=== PATIENT | female | born 1975 | race Hispanic/Latino ===

== ENCOUNTER → 2023-12-01 13:08 | Outpatient (REF) | payer OTHER, SELFPAY | LOC: WDC 13:08 | PROVIDERS: ATTENDING PHYSICIAN Physician Assistant Medical | DX: Z12.31 Encounter for screening mammogram for malignant neoplasm of breast (principal) | CPT/HCPCS: 77063; 77067 ==

== ENCOUNTER 2023-12-22 20:09 | Emergency (ER) | payer OTHER, SELFPAY ==
[2023-12-22 20:10] VITALS: BP 110/74
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
[2023-12-22] MEDS: MOTRIN 600 MG PO (22:12)
[2023-12-22] MEDS: ADACEL 0.5 ML IM (22:13)
== END 2023-12-22 22:23 | disposition home or self-care (01) ==
LOC: EMR 20:09
PROVIDERS: EMERGENCY PHYSICIAN Emergency Medicine; FAMILY PHYSICIAN Physician Assistant Medical
DX: S61.311A Laceration without foreign body of left index finger with damage to nail, initial encounter (principal); W26.0XXA Contact with knife, initial encounter; Z23 Encounter for immunization
CPT/HCPCS: 99282; 12001; 90471; 90715

== ENCOUNTER → 2024-03-04 13:03 | Outpatient (REF) | payer OTHER, SELFPAY | LOC: WDC 13:03 | PROVIDERS: ATTENDING PHYSICIAN Physician Assistant Medical | DX: R92.2 Inconclusive mammogram (principal); Z91.89 Other specified personal risk factors, not elsewhere classified | CPT/HCPCS: 76641 ==

== ENCOUNTER → 2024-05-03 14:13 | Outpatient (REF) | payer OTHER, SELFPAY ==
[2024-05-03 15:00] LABS: % Basophils 0.6 % (0-2); % Eosinophils 0.6 % (0-6); % Immature Granulocytes 0.1 % (0-0.5); % Monocytes 5.3 % (1.7-9.3); % Neutrophils 64.4 % (42.2-75.2); Absolute Monocytes 0.4 10^3/uL (0.1-0.6); Absolute Neutrophils 4.5 10^3/uL (1.4-6.5); Hematocrit 38.4 % (37.0-47.0); Hemoglobin 13.6 g/dL (12.0-16.0); Mean Corp Hgb Conc. 35.4 g/dL (33.0-37.0); Mean Corpuscular Hgb 30.4 pg (27.0-31.0); Mean Corpuscular Volume 85.9 fL (81.0-99.0); Nucleated Red Blood Cells % 0 %; Platelet Count 365 10^3/uL (130-400); Red Blood Cell Count 4.47 10^6/uL (4.20-5.40); Red Cell Dist. Width 12.7 % (11.5-14.5)
[2024-05-03 15:23] LABS: ALT (SGPT) 18 U/L (0-35); AST (SGOT) 24 U/L (14-36); Albumin 4.4 g/dl (3.5-5.0); Alkaline Phosphatase 38 U/L (38-126); Blood Urea Nitrogen 9 mg/dl (7-17); Carbon Dioxide 24 mmol/L (22-30); Chloride 106 mmol/L (98-107); Glucose 99 mg/dl (70-99); Potassium 4.1 mmol/L (3.5-5.1); Sodium 141 mmol/L (135-145); eGFR > 60.00
== END ==
LOC: RCS 14:13
PROVIDERS: ATTENDING PHYSICIAN Surgery Plastic and Reconstructive Surgery; FAMILY PHYSICIAN Physician Assistant Medical
DX: Z01.818 Encounter for other preprocedural examination (principal)
CPT/HCPCS: 36415; 80053; 85025; 93005

== ENCOUNTER → 2024-05-28 07:30 | Outpatient (REF) | payer OTHER, SELFPAY | LOC: CLAB 07:30 | PROVIDERS: ATTENDING PHYSICIAN Surgery Plastic and Reconstructive Surgery | DX: N62 Hypertrophy of breast (principal); Z98.82 Breast implant status; Z15.01 Genetic susceptibility to malignant neoplasm of breast | CPT/HCPCS: 88304; 88305 ==

== ENCOUNTER → 2024-07-19 09:31 | Outpatient (REF) | payer OTHER, SELFPAY | LOC: RAD 09:31 | PROVIDERS: ATTENDING PHYSICIAN Surgery Plastic and Reconstructive Surgery; FAMILY PHYSICIAN Physician Assistant Medical | DX: Z15.01 Genetic susceptibility to malignant neoplasm of breast (principal) | CPT/HCPCS: 74174; Q9967 ==

== ENCOUNTER → 2024-11-25 12:29 | Outpatient (REF) | payer OTHER, SELFPAY | LOC: RCS 12:29 | PROVIDERS: ATTENDING PHYSICIAN Surgery Plastic and Reconstructive Surgery; FAMILY PHYSICIAN Physician Assistant Medical | DX: C50.412 Malignant neoplasm of upper-outer quadrant of left female breast (principal) | CPT/HCPCS: 93005 ==

== ENCOUNTER 2024-12-11 06:07 | Inpatient (IN) | payer OTHER, SELFPAY ==
[2024-12-11] VITALS (38 sets, daily range): BP systolic 71–115; BP diastolic 50–80; BMI 23.6
[2024-12-11] MEDS: LOVENOX 40 MG SC (06:42)
[2024-12-11] MEDS: NORMOSOL-R/PLASMALYTE-A 1000 IV (06:43)
[2024-12-11 06:49] LABS: HCG, Urine Qualitative Screen Negative
--- NOTE | 2024-12-11 07:16 | W.SUR.PREOP ---
Pre-Operative Surgical Note
-
I have examined this patient prior to the performance of the scheduled procedure.
The patient's condition is unchanged from the time of the current History and
Physical and the patient is able to undergo the scheduled procedure.
[2024-12-11] MEDS: TRANSDERM-SCOP 1 PATCH TRANSDERM (07:24)
[2024-12-11 10:30] LABS: Hematocrit 30.5 % (37.0-47.0); Mean Corp Hgb Conc. 32.8 g/dL (33.0-37.0); Mean Corpuscular Volume 82.4 fL (81.0-99.0); Mean Platelet Volume 9.2 fL (7.4-10.4); Platelet Count 288 10^3/uL (130-400); Red Cell Dist. Width 14.2 % (11.5-14.5); White Blood Cell Count 8.1 10^3/uL (4.8-10.8)
[2024-12-11 10:47] LABS: Blood Urea Nitrogen 10 mg/dl (7-17); Calcium 6.5 mg/dl (8.4-10.2); Carbon Dioxide 22 mmol/L (22-30); Chloride 111 mmol/L (98-107); Estimated Creatinine Clearance 90 ml/min; Glucose 92 mg/dl (70-99); Potassium 4.6 mmol/L (3.5-5.1); Sodium 141 mmol/L (135-145); eGFR > 60.00
--- NOTE | 2024-12-11 15:48 | OR.RPT ---
Operative Report
Operative Report
Date of Service: 12/11/24
Surgeon: Lucy Kelly MD
Co-Surgeon: Davi Garcia MD
Assisting Surgeon: Leesa Florez MD
Preoperative diagnosis:
1. 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
2. 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
Postoperative diagnosis: Same
Procedure:
1. Bilateral immediate MAXIMILIAN flap breast reconstruction
2. Right internal mammary lymph node biopsy
3. Bilateral local tissue rearrangements 50cm2
4. Application of HARMAN disposable negative pressure incisional wound VAC.
Anesthesia: General
EBL: 250 cc
Specimens: Per Dr. Florez. right internal mammary lymph node
Drains: 4 15 Salvadorean Edgar drains
Complications: None
Indications: This is a 49-year-old female who has a history of genetic predispostion to breast cancer and elected to undergo risk reducing bilateral nipple sparing mastectomies. She had previously underwent breast augmentation and was unhappy with
her implants, so she had already had implant removal and mastopexies. She was referred to me by her primary plastic surgeon, Dr. Garcia for autologous reconstruction due to her desire to no longer have implants. I discussed the various options
available to her. She was interested in pursuing autologous reconstruction with tissue from her abdomen and she had acceptable donor site. She understood that she would be smaller breasted after her reconstructions and was amenable to this. Risks of
the procedure were discussed including flap failure, return to OR for arterial or venous thrombosis, wound healing issues, donor site morbidity to the abdomen and VTE.� We reviewed the nature of the procedure and the risk benefits and alternatives
at length.� All her questions were answered.� Consent was signed prior to surgery.
Operative findings:
The patient was brought to the operating room and placed supine on the operating room table. General anesthesia was induced with endotracheal tube.� A Jin catheter was placed.� Patient was prepped and draped in the standard fashion using
chlorhexidine prep.� A timeout was performed.
Dr. Garcia and I started the dissection of the flaps in the abdomen while the breast surgeon was performing the bilateral nipple sparing mastectomies. This involved dissection of the abdominal wall and identification of perforating vessels into the
abdominal flaps bilaterally.� On the patient's right side a 4 front office assistant MAXIMILIAN flap was dissected.� This involved very little muscle to minimize the morbidity to the abdominal wall.� The flap was dissected down to the source vessels where the
inferior epigastrics were coming off of the external iliac.
On the contralateral side another 5 front office assistant MAXIMILIAN flap was also dissected.� This similarly involved a tedious intramuscular dissection where the inferior epigastrics were traced down to their source vessel in a muscle sparing approach.
Once the breast surgeon was done performing the mastectomies, attention was turned to the chest wall. The third rib was resected bilaterally. The internal mammary arteries and veins were identified and carefully circumferentially dissected. Internal
mammary lymph nodes were encountered on the right and these were sent off for pathologic evaluation.
The right hemiabdominal flap was harvested from the abdomen and transferred to the left chest wall.� Microvascular anastomosis was then performed to the internal mammary vessels.� This was done using a 2.5 millimeter programming manager for the venous
anastomosis.� The arterial anastomosis was performed using 8-0 nylon suture in the normal standard fashion.
After the microvascular anastomosis was performed there was excellent perfusion of the flap.� This was temporarily inset and attention was turned to the contralateral breast.
The left hemiabdomen was then transferred to the right chest wall.� The identical procedure was then performed from a microvascular perspective.� This side was with a 3.5 mm programming manager for the venous anastomosis and 8-0 nylon suture for the arterial
anastomosis. This flap similarly had excellent perfusion afterwards.
While my co-surgeon Dr. Garcia was working in the chest, I was dissecting the other MAXIMILIAN flap in the abdomen.� While I was performing microsurgery, he was working in the abdomen to reconstruct the abdominal wall. This allowed us to work in seperate
sites simultaneously to maximize the safety and efficiency of the procedure for the patient.
The abdominal wall was reconstructed using a piece of phasix mesh in an underlay fashion.� The fascia was primarily closed bilaterally. The abdominal wall was then closed in a layered fashion.� This was done after performing a tap block using
marcaine divided evenly amongst the hemiabdomens.� Two 15 Salvadorean edgar drains were placed in the abdomen.� These were secured using 2-0 Prolene sutures.� The Jackie's fascia was then reapproximated using 2-0 Vicryl suture.� The skin was then closed
in a layered fashion using insorb dermal dominique and a running Monocryl suture.
Bilateral pec and intercostal blocks were performed with marcaine and a 15 Salvadorean edgar drain was placed in each breast pocket.� These were also secured using 2-0 Prolene sutures.�
The breast flaps were then de-epithelialized and inset.�The breast skin was then modified with a centralized back cut to inset the skin paddle in a vertical fashion. The area of local tissue rearrangement on each side was approximately 5x5cm for a
total of 50cm2. The breast skin was closed in layered fashion using 3-0 and 4-0 Monocryl suture.� All incisions were dressed with Dermabond glue.� Hand-held Doppler signals were found in the reconstructed breasts and these were marked with a 5-0
Prolene suture. A HARMAN incisional wound VAC was applied to the abdominal incision.
The patient tolerated the procedure very well.� All counts were correct at the completion of the case.� The patient was then extubated uneventfully and transferred to the ICU in stable condition.
Dr. Donaldo Garcia was my co-surgeon for this case.� His status as a co-surgeon was critical and allowing us to function as two separate teams.� This allowed us to operate simultaneously on both the breasts and on each side of the abdomen.� This
was essential for the appropriate safety and efficiency of this procedure.
Dr. Florez was our data entry assistant for this case after performing the mastectomies. Her assistance was critical to allow for us to execute the surgery in a safe and timely manner.
--- NOTE | 2024-12-11 15:52 | W.IMMPOSTOP ---
Surgical Immed Post Op Note
-
Primary Surgeon: Gautam
Assisting Surgeon: None
Pre-op Diagnosis: Deleterious genetic variant CDH1, umbilical hernia, acquired bilateral ventral abdominal wall defects
Post-op Diagnosis: Same
Procedure Performed: Bilateral nipple sparing mastectomies, repair of umbilical hernia, repair of bilateral ventral abdominal wall defects
Anesthesia Type: GET
Specimen / Cultures: Bilateral breasts, bilateral breast cicatrices, bilateral inferior breast skin specimens, right internal mammary lymph node
Estimated Blood Loss: 250cc
Complications: None
Operative Findings: Umbilical hernia found upon dissecting
--- NOTE | 2024-12-11 15:56 | OR.RPT ---
Operative Report
Operative Report
Preoperative diagnosis: Deleterious variant CDH 1, bilateral acquired ventral abdominal wall defect, umbilical hernia
Postoperative diagnosis: same
Procedure date: 12/11/2024
Surgeon: Gautam
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 She opted for risk reduction surgery and will undergo bilateral prophylactic
nipple sparing mastectomies and immediate reconstruction with bilateral MAXIMILIAN flaps.
The primary plastic surgeon Dr. Garcia had removed implants approximately 3 months prior and performed a bilateral mastopexy.
The patient presented to same-day surgical services. She verified site and procedures and DVT and antibiotic prophylaxis were delivered. She was transferred to the operating room and in the supine position, general anesthesia was induced. A Jin
catheter was inserted using aseptic technique and her arms were tucked at the patient's side. Plastic surgery had marked her incisions and the chest, breasts and abdominal wall were prepped and draped in the usual sterile fashion. An appropriate
timeout was performed by all staff members.
I began the mastectomies beginning on the right side and excising the previous inframammary incision as portions of it had formed keloid scarring. This tissue was sent to pathology for permanent analysis. The breast was elevated off the chest wall
using the PlasmaBlade and lighted retractor. Then the skin and subcutaneous tissue were elevated off of the breast using a PlasmaBlade. The nipple was intact and appeared to have good blood supply at that juncture. The breast tissue was taken off
the chest wall in a superior to inferior direction and oriented for the pathologist and sent for permanent analysis. Time out of body was also noted. Moist packs were placed in the pocket and the left side was removed in the same fashion.
Then I assisted the plastic surgeons. During the harvesting of the flap it was noted that there was a small umbilical hernia present. Herniated fat was amputated using the cautery revealing a small 5 mm defect of the anterior abdominal fascia.
This was closed with 2 simple interrupted 0 PDS suture. Then after harvesting the MAXIMILIAN flaps this left resultant defects on both sides of the anterior abdominal wall both mesuring 18 x 3 cm. The fascia was loosely approximated with interrupted
dominique. Phasic mesh was cut and placed in a subfascial position. This was sutured to the fascia which was closed using simple interrupted 0 PDS suture. O- phasic suture was then used to imbricate both incisions. A TAP block was performed on
both sides using 30 cc of 0.5% Marcaine plain diluted with sterile water resulting in a concentration of .25%.
I was present for the remainder of the procedure and closed the lower abdominal wound using simple interrupted 2-0 Vicryl on Jackie's fascia and INSORB stapler on subcutaneous tissue and a running subcuticular locking 4-O [facility]. Plastic surgery
anastomosed the flaps and de-epithelialized and inset them into position. The breast closure was completed. Additionally the umbilicus was delivered externally inserted into position by plastic surgery. Sterile dressings were applied and the
patient was transferred to the intensive care unit in stable condition. All sponge,needle and instrument counts were correct.
([id number], [id number])
--- NOTE | 2024-12-11 16:13 | W.IMMPOSTOP ---
Surgical Immed Post Op Note
-
Primary Surgeon: ANGEL Garcia MD
Assisting Surgeon:
Pre-op Diagnosis: genetic susceptibility to breast cancer
Post-op Diagnosis: same
Procedure Performed: bilateral MAXIMILIAN flap breast reconstruction
Anesthesia Type: General
Specimen / Cultures: Per Dr. Florez
Estimated Blood Loss: 250 cc
Complications: none
Operative Findings: as expected
--- NOTE | 2024-12-11 16:13 | OR.RPT ---
Operative Report
Operative Report
Date of Service: 12/11/24
Surgeon: Davi Garcia MD
Co-Surgeon: Lucy Kelly MD
Assisting Surgeon: Leesa Florez MD
Preoperative diagnosis:
1. 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
2. 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
Postoperative diagnosis: Same
Procedure:
1. Bilateral immediate MAXIMILIAN flap breast reconstruction
2. Right internal mammary lymph node biopsy
3. Bilateral local tissue rearrangements 50cm2
4. Application of HARMAN disposable negative pressure incisional wound VAC.
Anesthesia: General
EBL: 250 cc
Specimens: Per Dr. Florez. right internal mammary lymph node
Drains: 4 15 Ethiopian Edgar drains
Complications: None
Indications: This is a 49-year-old female who has a history of genetic predispostion to breast cancer and elected to undergo risk reducing bilateral nipple sparing mastectomies. She had previously underwent breast augmentation and was unhappy with
her implants, so she had already had implant removal and mastopexies as a staged procedure for nipple sparing mastectomy. given her desire for avoiding implant-based reconstruction, I referred her to my co-surgeon Dr. Lucy Kelly for consideration
of bilateral MAXIMILIAN flap breast reconstruction. She was interested in pursuing autologous reconstruction with tissue from her abdomen and she had acceptable donor site. She understood that she would be smaller breasted after her reconstructions and
was amenable to this. Risks of the procedure were discussed including flap failure, return to OR for arterial or venous thrombosis, wound healing issues, donor site morbidity to the abdomen and VTE.� We reviewed the nature of the procedure and the
risk benefits and alternatives at length.� All her questions were answered.� Consent was signed prior to surgery.
Operative findings:
The patient was brought to the operating room and placed supine on the operating room table. General anesthesia was induced with endotracheal tube.� A Jin catheter was placed.� Patient was prepped and draped in the standard fashion using
chlorhexidine prep.� A timeout was performed.
Dr. Kelly and I started the dissection of the flaps in the abdomen while the breast surgeon was performing the bilateral nipple sparing mastectomies. This involved dissection of the abdominal wall and identification of perforating vessels into the
abdominal flaps bilaterally.� On the patient's right side a 4 stress engineer MAXIMILIAN flap was dissected.� This involved very little muscle to minimize the morbidity to the abdominal wall.� The flap was dissected down to the source vessels where the
inferior epigastrics were coming off of the external iliac.
On the contralateral side another 5 stress engineer MAXIMILIAN flap was also dissected.� This similarly involved a tedious intramuscular dissection where the inferior epigastrics were traced down to their source vessel in a muscle sparing approach.
Once the breast surgeon was done performing the mastectomies, attention was turned to the chest wall. The third rib was resected bilaterally. The internal mammary arteries and veins were identified and carefully circumferentially dissected. Internal
mammary lymph nodes were encountered on the right and these were sent off for pathologic evaluation.
The right hemiabdominal flap was harvested from the abdomen and transferred to the left chest wall.� Microvascular anastomosis was then performed to the internal mammary vessels.� This was done using a 2.5 millimeter policy writer for the venous
anastomosis.� The arterial anastomosis was performed using 8-0 nylon suture in the normal standard fashion.
After the microvascular anastomosis was performed there was excellent perfusion of the flap.� This was temporarily inset and attention was turned to the contralateral breast.
The left hemiabdomen was then transferred to the right chest wall.� The identical procedure was then performed from a microvascular perspective.� This side was with a 3.5 mm policy writer for the venous anastomosis and 8-0 nylon suture for the arterial
anastomosis. This flap similarly had excellent perfusion afterwards.
While my co-surgeon Dr. Kelly was working in the chest, I was dissecting the other MAXIMILIAN flap in the abdomen.� While I was performing microsurgery, he was working in the abdomen to reconstruct the abdominal wall. This allowed us to work in separate
sites simultaneously to maximize the safety and efficiency of the procedure for the patient.
The abdominal wall was reconstructed using a piece of phasix mesh in an underlay fashion.� The fascia was primarily closed bilaterally. The abdominal wall was then closed in a layered fashion.� This was done after performing a tap block using
marcaine divided evenly amongst the hemiabdomens.� Two 15 Ethiopian edgar drains were placed in the abdomen.� These were secured using 2-0 Prolene sutures.� The Jackie's fascia was then reapproximated using 2-0 Vicryl suture.� The skin was then closed
in a layered fashion using insorb dermal dominique and a running Monocryl suture.
Bilateral pec and intercostal blocks were performed with marcaine and a 15 Ethiopian edgar drain was placed in each breast pocket.� These were also secured using 2-0 Prolene sutures.�
The breast flaps were then de-epithelialized and inset.�The breast skin was then modified with a centralized back cut to inset the skin paddle in a vertical fashion. The area of local tissue rearrangement on each side was approximately 5x5cm for a
total of 50cm2. The breast skin was closed in layered fashion using 3-0 and 4-0 Monocryl suture.� Hand-held Doppler signals were found in the reconstructed breasts and these were marked with a 5-0 Prolene suture. A HARMAN incisional wound VAC was
applied to the abdominal incision.
The patient tolerated the procedure very well.� All counts were correct at the completion of the case.� The patient was then extubated uneventfully and transferred to the ICU in stable condition.
Dr. Lucy Kelly was my co-surgeon for this case.� His status as a co-surgeon was critical and allowing us to function as two separate teams.� This allowed us to operate simultaneously on both the breasts and on each side of the abdomen.� This was
essential for the appropriate safety and efficiency of this procedure.
Dr. Florez was our apartment community assistant manager for this case after performing the mastectomies. Her assistance was critical to allow for us to execute the surgery in a safe and timely manner.
[2024-12-11] MEDS: LR 1000 IV ×2 (16:45→23:15)
[2024-12-11 16:50] LABS: % Basophils 0.4 % (0-2); % Immature Granulocytes 0.3 % (0-0.5); % Lymphocytes 6.9 % (20.5-51.1); % Neutrophils 86.4 % (42.2-75.2); Absolute Lymphocytes 0.7 10^3/uL (1.2-3.4); Absolute Monocytes 0.6 10^3/uL (0.1-0.6); Absolute Neutrophils 9.3 10^3/uL (1.4-6.5); Hematocrit 32.3 % (37.0-47.0); Hemoglobin 10.8 g/dL (12.0-16.0); Mean Corp Hgb Conc. 33.4 g/dL (33.0-37.0); Mean Corpuscular Hgb 26.5 pg (27.0-31.0); Mean Corpuscular Volume 79.4 fL (81.0-99.0); Mean Platelet Volume 8.8 fL (7.4-10.4); Nucleated Red Blood Cells % 0 %; Platelet Count 296 10^3/uL (130-400); Red Blood Cell Count 4.07 10^6/uL (4.20-5.40); Red Cell Dist. Width 14.6 % (11.5-14.5); White Blood Cell Count 10.7 10^3/uL (4.8-10.8)
[2024-12-11 17:00] LABS: INR 1.13
[2024-12-11 17:01] LABS: APTT 26.3 Sec (23.4-35.0)
--- NOTE | 2024-12-11 17:10 | CON.INTV ---
Consultation
Consultation Request
Date/Time Consultation Requested: 12/11/2024
Date/Time Consultation Performed: 12/11/2024
Requesting Provider: Dr. Garcia
Performing Provider: Dr. Kwabena calabrese
Reason for Consultation: Status post bilateral nipple sparing mastectomy and reconstruction
Medical History
-
History of Present Illness:
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 She opted for risk reduction surgery and will undergo bilateral prophylactic nipple sparing mastectomies
and immediate reconstruction with bilateral MAXIMILIAN flaps.
Surgery underwent on 12/11/2024.
Patient transferred to the critical care unit.
Still recovering from anesthesia.
Slightly hypotensive.
Past Medical History
Past Medical History: Other (See assessment and plan)
Social History
Tobacco: Non-smoker
Alcohol: None
Drug: None
Family History
Family History: Reviewed & Not Pertinent
Allergies / Home Medications
Allergies
Allergy/AdvReac Type Severity Reaction Status Date / Time
No Known Allergies Allergy Verified 12/11/24 06:28
Home Medications
�Medication �Instructions �Recorded �Confirmed �Last Taken �Type
acetaminophen 325 mg capsule 650 mg PO Q4H PRN pain 12/05/24 12/11/24 1 Week Ago History
~12/04/24
alprazolam 0.5 mg tablet 0.5 mg PO DAILY PRN anxiety 12/05/24 12/11/24 2 Months Ago History
~10/11/24
ibuprofen 200 mg capsule 400 - 600 mg PO Q6H PRN migraines 12/05/24 12/11/24 1 Week Ago History
~12/04/24
multivitamin with minerals-folic 2 tab PO DAILY 12/05/24 12/11/24 1 Week Ago History
acid 200 mcg chewable tablet ~12/04/24
(Multivitamin Gummies)
sumatriptan succinate 100 mg 100 mg PO DAILYPRN PRN migraines 12/05/24 12/11/24 2 Weeks Ago History
tablet (Imitrex) ~11/27/24
melatonin 1 mg tablet 3 mg PO HS PRN sleep 12/11/24 12/11/24 12/09/24 22:00 History
Review of Systems
-
History Source: Patient
All other systems: Negative unless noted
Vitals / Labs / Diagnostic Testing
Vital Signs
Temp Pulse Resp BP Pulse Ox
98.0 F 68 20 115/80 96
12/11/24 06:30 12/11/24 06:30 12/11/24 06:30 12/11/24 06:30 12/11/24 06:30
Lab Data
12/11/24 16:39
12/11/24 09:50
Laboratory Results
12/11/24
16:42
PT 15.0 H
INR 1.13
APTT 26.3
Diagnostic Testing:
Physical Exam
-
HEENT: Normocephalic
Cardiovascular: S1/S2
Respiratory: Clear and Non-Labored Respirations
GI: Soft
Neurology: Awake, Alert and No Motor Deficits
Skin: Warm
General: Comfortable
Assessment
-
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 Patient opted for risk reduction surgery and underwent bilateral prophylactic nipple sparing mastectomies and immediate
reconstruction with bilateral MAXIMILIAN flaps.
Status post prophylactic nipple sparing mastectomies and immediate reconstruction with bilateral MAXIMILIAN flaps. 12/11/2024
Hypotension postoperatively-likely volume depletion/anesthesia effect
Anemia
Conditions present prior admission:
Migraines
Depression
Family history of breast cancer
History of breast augmentation 2019-breast implant removal May 2024.
Assessment and plan:
Postoperative day 0
Extubated
Still recovering from anesthesia-following commands but somnolent. Easily arousable
Continue oxygen supplementation to maintain pulse ox above 90%
-
Slightly hypotensive but has good urinary output
Jin in place with clear urine
LR 125 cc an hour will continue
Will give an amp of albumin
Suspect hemodynamics will improve as anesthesia wears off.
-
Avoid x-rays
Avoid hypotension
Monitor flaps per protocol
-
Analgesia with narcotics as needed-monitor respiratory status closely.
-
Follow hemoglobin
Transfuse as necessary
-
DVT prophylaxis with SCDs
-
Critical care hemodynamic monitoring per protocol.
[2024-12-11] MEDS: ANCEF 5 IV (17:14)
[2024-12-11] MEDS: ALBUMIN 5% 250 IV (17:39)
--- NOTE | 2024-12-11 18:00 | PTCARENOTE ---
Scopolamine patch intact on left neck behind left ear.
[2024-12-11] MEDS: TYLENOL 1000 MG PO ×2 (18:11→23:13)
[2024-12-11] MEDS: ULTRAM 100 MG PO (18:38)
[2024-12-11] MEDS: VALIUM 5 MG PO ×2 (19:32→23:14)
[2024-12-11] MEDS: NEURONTIN 300 MG PO ×2 (19:32→23:14)
--- NOTE | 2024-12-11 19:33 | PTCARENOTE ---
1623-Received pt from OR via bed.Breast physicians at bedside.
Presently pt is awake,alert with appropriate conversation.+SOLIS.Assists with repositioning.c/o severe bl breast and abdominal pain.Requested and received Ultram as ordered.Pt also repositioned for comfort.SR-ST noted.IVF infusing as ordered.1732 BP
73/53.Dr Patel at bedside.Albumin transfused as ordered.BP now 83/62.Topher hugger utilized as ordered.Lungs CTA.POX 100% on RA.Tolerating water.Jin draining yellow urine.Breast MAXIMILIAN sites and abdominal incision as documented.BL breast and BL
abdominal drains as documented.Breast paddle sounds as documented and completed in tandem with oncoming RN.Pt's and mother at bedside.Plan of care discussed.
--- NOTE | 2024-12-11 20:00 | PTCARENOTE ---
on assessment pt aaox3 but drowsy, c/o surgical pain, meds given see SONIA, SR on the monitor, BP soft, SERVICE AGENT aware, RA 99%, clear liquid diet, tolerating fluids, hall in place, EDMUND drains x4, + paddle pulses, scant amount of drainage, ABD site with HARMAN
blinking orange, no drainage noted, family at bedside and call west in reach
[2024-12-11 20:15] LABS: Blood Urea Nitrogen 9 mg/dl (7-17); Calcium 6.4 mg/dl (8.4-10.2); Carbon Dioxide 19 mmol/L (22-30); Chloride 114 mmol/L (98-107); Estimated Creatinine Clearance 77 ml/min; Glucose 159 mg/dl (70-99); Potassium 3.6 mmol/L (3.5-5.1); Sodium 137 mmol/L (135-145); eGFR > 60.00
[2024-12-11] MEDS: LR 500 IV (20:30)
[2024-12-11] MEDS: CALCIUM GLUCONATE 290 MG IV (20:32)
[2024-12-11] MEDS: MUCINEX 1200 MG PO (21:25)
--- NOTE | 2024-12-11 23:47 | PTCARENOTE ---
pt BP improved with fluid bolus, calcium, and albumin. no other changes at this time, call west in reach
[2024-12-12] VITALS (37 sets, daily range): BP systolic 86–120; BP diastolic 49–78; BMI 25.2
[2024-12-12] MEDS: ANCEF 5 IV ×2 (02:58→09:21)
[2024-12-12 03:11] LABS: % Basophils 0.2 % (0-2); % Immature Granulocytes 0.5 % (0-0.5); % Lymphocytes 16.4 % (20.5-51.1); % Monocytes 9.4 % (1.7-9.3); % Neutrophils 73.5 % (42.2-75.2); Absolute Lymphocytes 1.4 10^3/uL (1.2-3.4); Absolute Monocytes 0.8 10^3/uL (0.1-0.6); Absolute Neutrophils 6.2 10^3/uL (1.4-6.5); Hemoglobin 7.9 g/dL (12.0-16.0); Mean Corp Hgb Conc. 34.3 g/dL (33.0-37.0); Mean Corpuscular Hgb 27.1 pg (27.0-31.0); Mean Corpuscular Volume 78.8 fL (81.0-99.0); Mean Platelet Volume 9.3 fL (7.4-10.4); Nucleated Red Blood Cells % 0 %; Platelet Count 228 10^3/uL (130-400); Red Blood Cell Count 2.92 10^6/uL (4.20-5.40); Red Cell Dist. Width 14.7 % (11.5-14.5); White Blood Cell Count 8.4 10^3/uL (4.8-10.8)
--- NOTE | 2024-12-12 03:24 | PTCARENOTE ---
hbg went from 10.8 to 7.9, SPORTS PHYSICAL THERAPIST made aware, no signs of bleeding noted and systolic BPs have been in the 90s
[2024-12-12 03:36] LABS: Blood Urea Nitrogen 11 mg/dl (7-17); Calcium 8.2 mg/dl (8.4-10.2); Carbon Dioxide 22 mmol/L (22-30); Chloride 108 mmol/L (98-107); Estimated Creatinine Clearance 67 ml/min; Glucose 115 mg/dl (70-99); Potassium 4.1 mmol/L (3.5-5.1); Sodium 132 mmol/L (135-145); eGFR > 60.00
[2024-12-12] MEDS: LR 1000 IV (06:20)
[2024-12-12] MEDS: COLACE 100 MG PO ×3 (07:23→21:09)
[2024-12-12] MEDS: VALIUM 5 MG PO ×3 (07:23→21:10)
[2024-12-12] MEDS: SENOKOT 8.6 MG PO ×2 (07:23→21:10)
[2024-12-12] MEDS: TYLENOL 1000 MG PO ×3 (07:23→17:32)
[2024-12-12] MEDS: NEURONTIN 300 MG PO ×3 (07:23→23:41)
[2024-12-12] MEDS: ANESTHETIC LOZENGE 1 LOZENGE PO (07:34)
--- NOTE | 2024-12-12 09:00 | W.PN.PLAS ---
Today's Communication
-
Lovenox tonight
Out of bed to chair
Regular diet
Progress Note
Subjective Data
doing well
Denies shortness of breath
Objective Data
Vital Signs
Temp Pulse Resp BP Pulse Ox
98.3 F 82 18 121/88 98
12/13/24 11:00 12/13/24 12:30 12/13/24 12:30 12/13/24 12:00 12/13/24 08:00
Intake and Output
12/12/24 12/13/24 12/14/24
06:59 06:59 06:59
Intake Total 1840 / 1965 3195 / 3195 1140 / 1140
Output Total 4096 / 4221 3947 / 3947 65 / 65
Balance -2256 / -2256 -752 / -752 1075 / 1075
Intake:
Oral fluids 2820 / 2820 1140 / 1140
IV fluids (Total) 1625 / 1750 375 / 375
Lr 1,000 ml @ 125 mls/hr IV . 1625 / 1750 375 / 375
Q8H TAVARES Rx#:[id number]
Blood Products 215 / 215
Albumin 25% 215 / 215
Output:
Drain Output (Total) 206 / 206 392 / 392 65 / 65
Left Abdomen 65 / 65 94 / 94 10 / 10
Left Breast 55 / 55 132 / 132 20 / 20
Right Abdomen 13 / 13 75 / 75 5 / 5
Right Breast 73 / 73 91 / 91 30 / 30
Urine, Jin 3890 / 4015 3555 / 3555 0 / 0
Urine, Voided 0 / 0
physical exam:
No acute distress
No increased work of breathing
Bilateral breast flaps well-perfused in appearance with intact Doppler signals
No evidence of venous congestion
EDMUND drain serosanguineous with appropriate output
Abdominal VAC dressing in place
Lab Results
12/13/24 03:22
12/12/24 02:54
Assessment / Plan
status post bilateral mastectomy and D IEP flap breast reconstruction
Expected postop surgical and dilutional anemia
Free flap pathway postop day 1
--- NOTE | 2024-12-12 09:00 | PTCARENOTE ---
at bedside to review plan of care. 0900 flap checks done w/ . 1000 HH cancelled...will check in am. IVF's capped. Ok to advance diet. Keep hall. OOB to chair later today. All patient's questions answered by .
--- NOTE | 2024-12-12 10:10 | PTCARENOTE ---
Addendum entered by Cary Ruiz RN 12/12/24 10:36:
Note is for 0800 assessment.
Original Note:
Assumed care of patient. Pt rec'd A&Ox3. Pleasant. HOB @ 30 degrees in beach chair position. SOLIS's. S1 S2 reg w/ NSR on monitor. +PP. +1 generalized edema. Bilateral knee hi SCD's. On R/A...sats 97%. Lungs clear. Encouraged coughing and
deep breathing. IS 1000mls. Weak dry NPC. Abdomen flat...+BS. Clear liquid diet. Temp sensing hall draining yellow urine. Hall care done. S/P MAXIMILIAN procedure....nipple sparing bilat mastectomies....incisions RECREATION THERAPY TEACHER w/ scant bldy
drainage...pulse checks done per MD orders. Breasts covered w/ abd's. Transverse abdominal incision w/ intact HARMAN dressing. 4 EDMUND's noted w/ sanguinous drainage. 20P LW w/ IVF's infusing. 18P RAC capped. VS documented. Tpoher rangel on for temp
mgmnt and pt comfort. Call west within reach. Will continue to monitor closely.
--- NOTE | 2024-12-12 10:26 | CM ---
Initial assessment completed with patient with daughter in room. Patient lives with her , mother and 2 daughters (18-19 y/o) in a 2 story home with B/B on 2nd and 1/2 bath on 1st and 2 steps to enter. 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
and ambulation and drove. No DME or in-home services. No HC-POA, was given POA documents on admission. No service. PCP is Dr. Cassi Mike and Pharmacy is [facility] in [place]. Discharge POC: PEDRO PABLO RN for drain care. Must be seen day
after discharge.
[2024-12-12] MEDS: ULTRAM 100 MG PO ×2 (10:57→21:18)
--- NOTE | 2024-12-12 12:00 | PTCARENOTE ---
No major changes in physical assessment. Pt's at bedside. Call west within reach. Will continue to monitor.
--- NOTE | 2024-12-12 12:10 | W.PN.INTV ---
Today's Communication / Plan
Recommendations
Continue postoperative care
Monitor H&H
Discontinue IV fluids
Incentive spirometry
Analgesia
Will continue to follow
Assessment
-
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 Patient opted for risk reduction surgery and underwent bilateral prophylactic nipple sparing mastectomies and immediate
reconstruction with bilateral MAXIMILIAN flaps.
Status post prophylactic nipple sparing mastectomies and immediate reconstruction with bilateral MAXIMILIAN flaps. 12/11/2024
Hypotension postoperatively-likely volume depletion/anesthesia effect
Anemia-dilutional and from blood loss
Conditions present prior admission:
Migraines
Depression
Family history of breast cancer
History of breast augmentation 2018-breast implant removal May 2024.
Assessment and plan:
Postoperative day 1
Normal supplemental oxygen
Pain is relatively comfortable-continue with analgesia-Analgesia with narcotics as needed-monitor respiratory status closely.
Incentive spirometry
Increase mobility per protocol
-
Excellent urinary output
Discontinue IV fluids
Encourage oral intake
Follow electrolytes and renal function
-
Surgical correspondence reviewed-continue postoperative care.-
Avoid x-rays
Avoid hypotension
Monitor flaps per protocol
-
Follow hemoglobin-suspect hemodilution and from postoperative blood loss.
No evidence for active bleeding
Continue to monitor daily
Transfuse as necessary
-
DVT prophylaxis with Lovenox
-
Critical care hemodynamic monitoring per protocol.
Subjective Dataa
Subjective Data
Date of Service:
Date of Service: December 12, 2024
Chief Complaint: Office Copy Selector Follow Up (Status post radical mastectomy with reconstruction)
Subjective:
No new complaints
Denies significant shortness of breath
Pain is relatively controlled
Review of Systems
Cardiopulmonary: Dyspnea (none at rest)
GI: Abdominal Pain (n) and Nausea (n)
Neuro: Headache (n)
Objective Data
Data Reviewed
Vital Signs / I&O / Oxygen:
Vital Signs
Temp Pulse Resp BP Pulse Ox
100.2 F 83 22 98/62 96
12/12/24 11:28 12/12/24 11:30 12/12/24 11:30 12/12/24 11:00 12/12/24 07:45
Intake and Output
12/11/24 12/12/24 12/13/24
06:59 06:59 06:59
Intake Total 1840 / 1965 1335 / 1335
Output Total 4096 / 4221 813 / 813
Balance -2256 / -2256 522 / 522
SaO2 96
Physical Exam
General: Comfortable
HEENT: Normocephalic
Cardiovascular: S1-S2 and Other (Incisions are dressed and without evidence of bleeding.)
Respiratory: Non-Labored Respirations
GI: Soft and Non Distended
Neurology: Awake and Alert
Skin: Warm
Labs/Micro/Reports
Lab Data
12/12/24 10:00
12/12/24 02:54
Laboratory Results
12/11/24
16:42
PT 15.0 H
INR 1.13
APTT 26.3
--- NOTE | 2024-12-12 12:45 | PTCARENOTE ---
Abdominal binder applied....EDMUND's safety pinned to binder. Assist x 2 to get pt OOB into recliner chair. Pt eating lunch.
--- NOTE | 2024-12-12 16:00 | PTCARENOTE ---
Pt remains OOB resting comfortably in chair. No major changes in physical assessment. Diet advanced to regular. No issues w/ nausea. at bedside. Call west within reach. Will continue to monitor.
[2024-12-12] MEDS: LOVENOX 40 MG SC (17:32)
--- NOTE | 2024-12-12 20:00 | PTCARENOTE ---
rec`d pt at 1900 resting OOB in chair. oriented x 3. family at bedside. q1 hr doppler pulse checks continued. checked w/ previous RN. rt breast Purplish red ecchymosis. SR on monitor. afebrile. scds. RA POX 97%. reg diet. hall draining clear
yellow urine. 4 jps draining. horizontal incision c/d/i with abdominal binder. PIVs flushed and patent. full chg wipedown and brushed teeth. call west in reach, safe environment maintained.
[2024-12-12] MEDS: TYLENOL PO (21:17)
[2024-12-12] MEDS: IMITREX 100 MG PO (23:41)
[2024-12-13] VITALS (21 sets, daily range): BP systolic 101–135; BP diastolic 69–91; PULSE 92; BMI 25.5
[2024-12-13] MEDS: ZOFRAN 4 MG IV (00:12)
[2024-12-13] MEDS: XANAX 0.5 MG PO (00:22)
--- NOTE | 2024-12-13 00:43 | PTCARENOTE ---
pt repositioned in bed to be more comfortable. pt doing IS. prn meds given for headache. Pt then became anxious and started feeling nausea. pt asked to walk around room a bit and see OOB to chair. pt is now OOB to chair and given a stat dose of
Xanax. call west in reach.
[2024-12-13] MEDS: ULTRAM 100 MG PO ×2 (03:29→09:25)
[2024-12-13 03:34] LABS: Hematocrit 24.8 % (37.0-47.0); Hemoglobin 8.4 g/dL (12.0-16.0)
--- NOTE | 2024-12-13 06:19 | PTCARENOTE ---
hall removed per MD orders.
--- NOTE | 2024-12-13 08:00 | PTCARENOTE ---
Received patient from operations supervisor 2nd shift. Patient is AAOx4, pleasant cooperative. She is on room air, spot checking 98%. She is sinus rhythm to sinus tach on monitor. Paddle checks remain unchanged. intact. there is a slight swelling above right
breast and skin around paddle is ecchymotic. unchanged from prior assessment. Patient is ordered regular diet. is due to void. Will review orders. plan to ambulate with PT. will continue paddle checks q1hr.
[2024-12-13] MEDS: SENOKOT 8.6 MG PO (08:43)
[2024-12-13] MEDS: VALIUM 5 MG PO ×3 (08:43→22:28)
[2024-12-13] MEDS: NEURONTIN 300 MG PO ×3 (08:43→23:02)
[2024-12-13] MEDS: TYLENOL 1000 MG PO ×4 (08:43→22:28)
[2024-12-13] MEDS: COLACE 100 MG PO ×3 (08:43→22:28)
--- NOTE | 2024-12-13 09:34 | CM ---
CM following for discharge planning. Camila will be going home with [facility] for drain care; plan to be seen at home the day following discharge.
Plan: [facility] for drain care. Family will transport.
--- NOTE | 2024-12-13 11:05 | PN.CDI ---
CDI
- -
CDI:
Physician Documentation Request
Admit Date: 12/11/24 06:07
Dear Doctor Herberth,
Patient admitted for mastectomy.
12/11 Operative Report: 'EBL: 250 cc'
12/12 Applications Support Analyst PN: 'Anemia-dilutional and from blood loss'
Laboratory Tests
12/11/24 12/11/24 12/12/24
09:50 16:39 02:54
Hgb 10.0 L 10.8 L 7.9 L D
Hct 30.5 L 32.3 L 23.0 L
Clarify which of the following accurately represents the acuity of the anemia. Possible options might include:
____ Acute
Acute on Chronic
Chronic stable condition
____ Other
Use of terms such as suspected, likely, concern for, or probable (associated with a specific diagnosis that is being evaluated, monitored, or treated as if it exists) are acceptable and can be coded in the inpatient setting, when documented at the
time of discharge.
Thank you,
Johanne Enamorado RN, BSN
CDI Specialist
Available via [place] text
Please use your independent medical judgment in providing your response.
--- NOTE | 2024-12-13 12:06 | W.PN.INTV ---
Addendum entered and electronically signed by Kwabena Kevin MD 12/13/24 13:11:
CDI inquiry:
Anemia is likely acute on chronic. Stable.
Original Note:
Today's Communication / Plan
Recommendations
Continue postoperative care
Follow H&H
Incentive spirometer
Analgesia
\\\\
ICU monitoring per protocol for now
Assessment
-
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 Patient opted for risk reduction surgery and underwent bilateral prophylactic nipple sparing mastectomies and immediate
reconstruction with bilateral MAXIMILIAN flaps.
Status post prophylactic nipple sparing mastectomies and immediate reconstruction with bilateral MAXIMILIAN flaps. 12/11/2024
Hypotension postoperatively-likely volume depletion/anesthesia effect
Anemia-dilutional and from blood loss
Conditions present prior admission:
Migraines
Depression
Family history of breast cancer
History of breast augmentation 2019-breast implant removal May 2024.
Assessment and plan:
Postoperative day 2
Normal supplemental oxygen
Hemodynamically stable
Pain is relatively comfortable-continue with analgesia-Analgesia with narcotics as needed-monitor respiratory status closely.
Incentive spirometry
Increase mobility per protocol
Follow drainage outputs on a daily basis. Surgery.
-
Tolerating diet
Encourage oral intake
IV fluids have been discontinued
Normal renal function and electrolytes
-
Surgical correspondence reviewed-continue postoperative care.-
Avoid x-rays
Avoid hypotension
Continue close monitoring in the ICU for now.
-
Follow hemoglobin-suspect hemodilution and from postoperative blood loss.
No evidence for active bleeding
Continue to monitor daily-hemoglobin today improved. Likely hemodilutional component.
Transfuse as necessary
-
DVT prophylaxis with Lovenox
-
Critical care hemodynamic monitoring per protocol
Possible discharge tomorrow-May transfer to telemetry later today
Subjective Dataa
Subjective Data
Date of Service:
Date of Service: December 13, 2024
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
Subjective:
Only complaint is incisional pain
Denies shortness of breath
Denies further nausea or vomiting
Denies abdominal pain.
Review of Systems
Cardiopulmonary: Dyspnea (none at rest)
GI: Abdominal Pain (n) and Nausea (n)
Objective Data
Data Reviewed
Vital Signs / I&O / Oxygen:
Vital Signs
Temp Pulse Resp BP Pulse Ox
98.3 F 100 17 107/90 98
12/13/24 11:00 12/13/24 09:45 12/13/24 09:45 12/13/24 09:00 12/13/24 08:00
Intake and Output
12/12/24 12/13/24 12/14/24
06:59 06:59 06:59
Intake Total 1840 / 1965 3195 / 3195 690 / 690
Output Total 4096 / 4221 3947 / 3947 65 / 65
Balance -2256 / -2256 -752 / -752 625 / 625
SaO2 98
Physical Exam
General: Comfortable
HEENT: Normocephalic
Cardiovascular: S1-S2 and Other (Incisions are dressed and without evidence of bleeding.)
Respiratory: Non-Labored Respirations and Other (Serosanguineous drainage noted on drains.)
GI: Soft and Non Distended
Neurology: Awake and Alert
Skin: Warm
Labs/Micro/Reports
Lab Data
12/13/24 03:22
12/12/24 02:54
--- NOTE | 2024-12-13 13:37 | PTCARENOTE ---
No change in patient's assessment. patient has ambulated around the unit. paddle checks remain unchanged. Will change to Q4 at 1600. patient resting comfortably in chair. Beach chair position reviewed with patient.
--- NOTE | 2024-12-13 13:43 | W.PN.PLAS ---
Today's Communication
-
PT OT
Case management for visiting nurse
Anticipate discharge tomorrow
Progress Note
Subjective Data
denies shortness of breath
Objective Data
Vital Signs
Temp Pulse Resp BP Pulse Ox
98.3 F 82 18 121/88 98
12/13/24 11:00 12/13/24 12:30 12/13/24 12:30 12/13/24 12:00 12/13/24 08:00
Intake and Output
12/12/24 12/13/24 12/14/24
06:59 06:59 06:59
Intake Total 1840 / 1965 3195 / 3195 1140 / 1140
Output Total 4096 / 4221 3947 / 3947 65 / 65
Balance -2256 / -2256 -752 / -752 1075 / 1075
Intake:
Oral fluids 2820 / 2820 1140 / 1140
IV fluids (Total) 1625 / 1750 375 / 375
Lr 1,000 ml @ 125 mls/hr IV . 1625 / 1750 375 / 375
Q8H TAVARES Rx#:[id number]
Blood Products 215 / 215
Albumin 25% 215 / 215
Output:
Drain Output (Total) 206 / 206 392 / 392 65 / 65
Left Abdomen 65 / 65 94 / 94 10 / 10
Left Breast 55 / 55 132 / 132 20 / 20
Right Abdomen 13 / 13 75 / 75 5 / 5
Right Breast 73 / 73 91 / 91 30 / 30
Urine, Jin 3890 / 4015 3555 / 3555 0 / 0
Urine, Voided 0 / 0
Physical exam:
No acute distress
No increased work of breathing
Bilateral breast flaps well-perfused in appearance with intact Doppler signals
No evidence of venous congestion
EDMUND drain serosanguineous with appropriate output
Abdominal VAC dressing in place
Lab Results
12/13/24 03:22
12/12/24 02:54
Assessment / Plan
status post bilateral mastectomy and D IEP flap breast reconstruction
Expected postop surgical and dilutional anemia
Free flap pathway postop day 2
--- NOTE | 2024-12-13 15:44 | VNURNOTE ---
Home Health Liaison met with patient and spouse at bedside to discuss [facility] nurse/therapy, visits, schedule and homebound status. Both are agreeable and understand that visits at home will be 2-3 x per week to assess and teach medical management.
Both are aware that [facility] will contact them for start of care the day after discharge from .
[facility] referral accepted in [facility].
--- NOTE | 2024-12-13 16:00 | PTCARENOTE ---
Ok for patient to be tele level of care.
[2024-12-13] MEDS: IMITREX 100 MG PO (16:23)
[2024-12-13] MEDS: LOVENOX 40 MG SC (18:30)
--- NOTE | 2024-12-13 19:51 | PTCARENOTE ---
Handoff report received from off going RN. Dual RN skin paddle assessment completed. Doppler pulses are present to bilateral breasts. Right breast is more ecchymotic and swollen than the left breast. Abdominal incision dressing is cdi. Pt's wearing
her abdominal binder. Denies pain at this time. Plan of care for the shift reviewed with the patient. NSR on the monitor. Clear lung sounds. SpO2 at 98% on room air.Patient ambulates to the bathroom independently. Pt's family brought at home senna
green tea. Patient states that her tea is more effective in having a BM than the tablets. Pharmacy made aware. Okay to hold off senna tablet per the patient. Pt's oob to chair. All needs are met at this time. Call west and personal belongings are
within reach.Family is at the bedside.
[2024-12-13] MEDS: SENOKOT PO (20:10)
--- NOTE | 2024-12-13 22:57 | PTCARENOTE ---
Patient cleansed. All EDMUND drains are with serosanguineous output. Drains stripped. HARMAN is blinking yellow. Patient transferred from the chair to bed. Verbalized feeling dizzy and mild nausea with movement. Declined antiemetic. All needs are met at
this time. Call west and personal belonings are within reach.
--- NOTE | 2024-12-14 00:55 | PTCARENOTE ---
No changes from the previous assessment.
[2024-12-14 06:00] VITALS: BMI 25.6
[2024-12-14 06:56] VITALS: BP 114/75
--- NOTE | 2024-12-14 08:00 | PTCARENOTE ---
Assumed care of patient. Assessment completed. VS documented. Will discharge home today per . jewelry mold maker removed per MD. Breast flaps, incisions and EDMUND's evaluated w/ at bedside. All questions answered by MD. Will
continue to monitor until discharge.
[2024-12-14] MEDS: TYLENOL 1000 MG PO (08:25)
[2024-12-14] MEDS: NEURONTIN 300 MG PO (08:25)
[2024-12-14] MEDS: COLACE 100 MG PO (08:25)
--- NOTE | 2024-12-14 08:25 | W.PN.PLAS ---
Today's Communication
-
home with VN
Progress Note
Subjective Data
Doing well
Objective Data
Vital Signs
Temp Pulse Resp BP Pulse Ox
98 F 85 14 114/75 96
12/14/24 07:30 12/14/24 06:56 12/14/24 06:56 12/14/24 06:56 12/13/24 19:30
Intake and Output
12/13/24 12/14/24 12/15/24
06:59 06:59 06:59
Intake Total 3195 / 3195 2520 / 2520
Output Total 3947 / 3947 1812 / 1812
Balance -752 / -752 708 / 708
Intake:
Oral fluids 2820 / 2820 2520 / 2520
IV fluids (Total) 375 / 375
Lr 1,000 ml @ 125 mls/hr IV . 375 / 375
Q8H TAVARES Rx#:[id number]
Output:
Drain Output (Total) 392 / 392 262 / 262
Left Abdomen 94 / 94 72 / 72
Left Breast 132 / 132 62 / 62
Right Abdomen 75 / 75 28 / 28
Right Breast 91 / 91 100 / 100
Urine, Jin 3555 / 3555 0 / 0
Urine, Voided 1550 / 1550
Other:
Number of approximated LARGE 1
amounts of urine
Physical exam:
No acute distress
No increased work of breathing
Bilateral breast flaps well-perfused in appearance with intact Doppler signals
No evidence of venous congestion
EDMUND drain serosanguineous with appropriate output
Abdominal VAC dressing in place
Lab Results
12/13/24 03:22
12/12/24 02:54
Assessment / Plan
status post bilateral mastectomy and D IEP flap breast reconstruction
Expected postop surgical and dilutional anemia
Free flap pathway postop day 3
Discharge to home with close surgical follow up
[2024-12-14] MEDS: VALIUM 5 MG PO (08:26)
[2024-12-14] MEDS: SENOKOT PO (08:26)
--- NOTE | 2024-12-14 08:26 | W.DCSUMMARY ---
Discharge Summary
Discharge Data
Date of Admission: 12/11/24
Date of Discharge: 12/14/24
-
Pending Results: No
Hospital Course
Routine postop course after MAXIMILIAN flap surgery. Progressively was able to ambulate, tolerate a regular diet and void. Pain well controlled on oral medications. No issues with flap monitoring
Discharged to home on POD 3 with close surgical follow up and VN.
Discharge Plan
-
Patient Disposition: Home with Home Care
Discharge Diagnosis/Procedures: s/p MAXIMILIAN flap breast reconstruction
Condition: Good
Diet: Regular
Activity: No strenuous activity
Additional Activity: T RUSSELL arms, no heavy lifting >10lbs
Driving Restrictions: Not until seen by your Dr
Bathing Restrictions: OK to Shower
Other Services: VN
Wound Care: ABD pads as needed, aquaphor to incisions, abdominal binder and compressive bra as needed. Strip and record drain output twice daily.
Referrals:
UNKNOWN - PT NOT,INTERVIEWE [Family Provider]
Prescriptions:
New
acetaminophen [Tylenol Extra Strength] 500 mg Tablet
1,000 mg PO QID 30 Days Qty: 240 0RF
gabapentin 300 mg Capsule
300 mg PO Q8 90 Days Qty: 270 0RF
docusate sodium 100 mg tablet
100 mg PO BID PRN (Reason: Constipation) 14 Days Qty: 60 0RF
enoxaparin 40 mg/0.4 mL Syringe
40 mg SC QPM 7 Days Qty: 2.8 0RF
tramadol 50 mg Tablet
50 - 100 mg PO Q6HPRN PRN (Reason: severe pain) 14 Days Qty: 20 0RF
diazepam 5 mg Tablet
5 mg PO TID 14 Days Qty: 42 0RF
silver sulfadiazine [SSD] 1 % cream
1 applic topical BID PRN (Reason: blistering) Qty: 50 1RF
Continued
sumatriptan succinate [Imitrex] 100 mg Tablet
100 mg PO DAILYPRN PRN (Reason: migraines)
alprazolam 0.5 mg Tablet
0.5 mg PO DAILY PRN (Reason: anxiety)
Patient Comments:
12/11/24: Per PDMP, last filled 04/24/24 #30 for 30 days
multivit with min-folic acid [Multivitamin Gummies] 200 mcg Tablet,Chewable
2 tab PO DAILY
melatonin 1 mg Tablet
3 mg PO HS PRN (Reason: sleep)
Held
ibuprofen 200 mg Capsule
400 - 600 mg PO Q6H PRN (Reason: migraines)
Hold Instructions: Resume on 12/19/24. Resume when off lovenox. Replace tramadol with ibuprofen.
Discontinued
acetaminophen [Tylenol] 325 mg Capsule
650 mg PO Q4H PRN (Reason: pain)
Discharge Orders:
Discharge Patient (As Directed); Ordered 12/14/24
Ordered By: Skip Garcia
Discharge Date and Time
Discharge Date/Time: 12/14/24 11:03
Print Language: LUXEMBOURGER
[2024-12-14 08:32] VITALS: BP 120/94
--- NOTE | 2024-12-14 08:45 | CM ---
Chart reviewed and plan is for patient to return to home today with [facility].
Plan; Home with [facility].
--- NOTE | 2024-12-14 10:45 | PTCARENOTE ---
Discharge instructions reviewed w/ pt and pt's . All questions answered. Copy of d/c instructions provided. IV sites removed. All belongings in room packed for discharge home. Pt escorted to 's car in wheelchair.
== END 2024-12-14 11:03 | disposition home health service (06) | DRG 580 ==
LOC: ICU 06:07
PROVIDERS: Nurse Practitioner Primary Care; Student in an Organized Health Care Education/Training Program; ADMITTING PHYSICIAN Surgery Plastic and Reconstructive Surgery; OTHER PHYSICIAN Internal Medicine Critical Care Medicine; REFERRING PHYSICIAN Surgery
PROC: 0WUF0JZ Supplement Abdominal Wall with Synthetic Substitute, Open Approach (ICD-10-PCS; 2024-12-11)
PROC: 0HTV0ZZ Resection of Bilateral Breast, Open Approach (ICD-10-PCS; 2024-12-11)
PROC: 07B80ZX Excision of Right Internal Mammary Lymphatic, Open Approach, Diagnostic (ICD-10-PCS; 2024-12-11)
PROC: 0HRV077 Replacement of Bilateral Breast using Deep Inferior Epigastric Artery Perforator Flap, Open Approach (ICD-10-PCS; 2024-12-11)
DX: Z40.01 Encounter for prophylactic removal of breast (principal); D62 Acute posthemorrhagic anemia; K42.9 Umbilical hernia without obstruction or gangrene; Z15.01 Genetic susceptibility to malignant neoplasm of breast; E86.9 Volume depletion, unspecified; I95.81 Postprocedural hypotension; G43.909 Migraine, unspecified, not intractable, without status migrainosus; F32.A Depression, unspecified; Z80.3 Family history of malignant neoplasm of breast
CPT/HCPCS: 88305; 88307; 80048; 81025; 85014; 85018; 85025; 85027; 85610; 85730; 86850; 86900; 86901; 97162; A4648; C1729; C1781; P9045

== ENCOUNTER 2025-04-30 06:11 | Day surgery (SDC) | payer OTHER, SELFPAY ==
[2025-04-30] VITALS (10 sets, daily range): BP systolic 109–130; BP diastolic 67–107; BMI 22.2
[2025-04-30] MEDS: TYLENOL 1000 MG PO (11:31)
[2025-04-30] MEDS: NORMOSOL-R/PLASMALYTE-A 1000 IV (11:42)
--- NOTE | 2025-04-30 14:36 | W.IMMPOSTOP ---
Surgical Immed Post Op Note
-
Primary Surgeon: ANGEL Garcia MD
Assisting Surgeon:
Pre-op Diagnosis: Surgically acquired absence of bilateral breast, status post MAXIMILIAN
Post-op Diagnosis: Same
Procedure Performed: Revision to the bilateral reconstructed breast, fat grafting to the bilateral breast, bilateral abdominal dogear correction
Anesthesia Type: General
Specimen / Cultures: None
Estimated Blood Loss: 30 cc
Complications: None
Operative Findings: As expected
--- NOTE | 2025-04-30 14:36 | OR.RPT ---
Operative Report
Operative Report
Date of surgery: 04/30/25
Surgeon: ANGEL Garcia MD
Preoperative diagnosis:
1. History of breast implant status
2. 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
3. Bilateral surgically acquired absence of breasts
4. Status post MAXIMILIAN flap breast reconstruction
Postoperative diagnosis: Same
Procedure:
1. Bilateral revisions to reconstructed breasts
2. Fat grafting to the bilateral breasts, donor site trunk and medial thighs, 220 cc total
3. Abdominal dogear revision via adjacent tissue transfer, 7 x 3 cm; 6 x 2 cm
Anesthesia: General
Complications: None
EBL: 30 cc
Indications for procedure: Patient is a 49-year-old female with a history of bilateral breast implants and a genetic predisposition to breast cancer who underwent staged explant and mastopexy followed by nipple sparing mastectomy and MAXIMILIAN flap
breast reconstruction. She followed a routine postoperative course and presented with concerns over residual skin islands from the MAXIMILIAN flap as well as contour abnormalities in the chest wall. She also had donor site dogears bilaterally that she
desired correction. A plan was made for revisions to the bilateral reconstructed breast with fat grafting to correct any contour irregularities as well as volume asymmetries. Adjacent tissue transfer would be used to correct the bilateral dogears
that were left from the abdominal donor site. Risk the procedure reviewed at length including fat necrosis, oil cyst, residual asymmetry, residual contour deformities, wound healing difficulties, abnormal scarring infection hematoma and seroma.
She understood these risks and desire to proceed
Procedure in detail: Patient was identified preoperatively and the surgical site was confirmed to be the bilateral breast, trunk and medial thighs. All questions were answered and consents were confirmed. Patient was taken back to the operating
room placed upon the table. Anesthesia was induced and the patient was prepped and draped in usual sterile fashion using ChloraPrep solution. Timeout for patient safety was performed was confirmed the preoperative antibiotics administered and
bilateral SCDs were in place. Procedure began first with the injection of tumescent solution consisting of 1 L of normal saline with dilute lidocaine and epinephrine. 2 L total were distributed over the anterior abdomen and bilateral flanks and
lateral chest wall. While the tumescent was allowed to take effect, attention was drawn first to the right breast to perform the revision the reconstructed breast. This was done by excising the prior scars using a 15 blade. Dissection continued
with Bovie electrocautery raising medial and lateral mastectomy skin flaps with adequate thickness. The flap itself was contoured with a 2-0 Vicryl to provide more anterior projection. The medial and lateral skin flaps were advanced to the midline
where the skin island had been removed. This resulted in an anchor pattern mastopexy. The wound was closed in layers using the INSORB stapler and 3-0 and 4-0 Monocryl's. Attention was then drawn to the left side where the exact same procedure was
performed. The skin island was excised in the lower pole midline as well as the prior scars. Medial and lateral mastectomy flaps were raised with the adequate subcutaneous tissue and advanced to the midline. The flap itself was contoured using a
2-0 Vicryl to create anterior projection. Wound was closed in layers using INSORB 3-0 and 4-0 Monocryl. At this point the tumesced had taken effect and attention was drawn toward lipo aspiration in order to proceed with fat graft harvest. Using
SAF E liposuction technique the fat was first then aspirated and finally equilibrated off suction. The pure graft system was used to filter and rinsed the fat with lactated Ringer's. A total of 220 cc of usable fat for injection
resulted. This was distributed over the bilateral breasts to correct chest wall contour irregularities from rib resection as well as any volume asymmetries. The bilateral abdominal dogears were excised along the length of the lateral abdominal
scar. A rotation advancement flap was then performed with a backcut to remove persistent dogear. This was closed in layers using INSORB stapler followed by 3 and 4 Monocryl. Patient tolerated the procedure well and was performed without
complication. All counts were correct at the end the case. She was extubated taken the PACU further care. Compression garments were placed as well as surgical dressings.
[2025-04-30] MEDS: DILAUDID 0.5 MG IV ×2 (15:00→15:25)
[2025-04-30] MEDS: ROXICODONE 5 MG PO (17:55)
== END 2025-04-30 18:15 | disposition home or self-care (01) ==
LOC: SDS 06:11
PROVIDERS: ATTENDING PHYSICIAN Surgery Plastic and Reconstructive Surgery
DX: T81.9XXA Unspecified complication of procedure, initial encounter (principal); Y83.1 Surgical operation with implant of artificial internal device as the cause of abnormal reaction of the patient, or of later complication, without mention of misadventure at the time of the procedure; Z98.82 Breast implant status; Z15.01 Genetic susceptibility to malignant neoplasm of breast; Z90.13 Acquired absence of bilateral breasts and nipples; Z98.890 Other specified postprocedural states
CPT/HCPCS: 19380